=== PATIENT | male | born 1990 | race Caucasian/White ===

== ENCOUNTER 2020-06-22 22:19 | Emergency (ER) | payer OTHER ==
[~2020-06-22] VITALS: Ht 180.3 cm; Wt 110.6 kg
--- NOTE | 2020-06-22 22:32 | NUR ---
EKG DONE IN TRIAGE.
--- NOTE | 2020-06-22 23:33 | NUR ---
pt to room from lobby
--- NOTE | 2020-06-23 | NUR ---
CC OF SYNCOPE, FELL WHILE SMOKING CIGERETTE AT HOME, + FOR LOC FOR APPROX 20 SECONDS, GIRLFRIEND AT HOME, HEARD FALL THROUGH FALL. PT STATES AFTER SYNCOPAL EVENT HE FELT DIZZY. ORTHOS NEGATIVE. PT ON CARDIAC MONITORS RESTING IN [facility], GF AT BEDSIDE
[2020-06-23 00:15] LABS: BASOPHILS % (AUTO) 1 % (0-1); EOSINOPHILS % (AUTO) 2 % (1-7); LYMPHOCYTES % (AUTO) 21 % (22-44); MEAN CORPUSCULAR HEMOGLOBIN 29.4 pg (27.5-34.5); MEAN CORPUSCULAR HGB CONC 33.5 g/dL (33.2-36.2); MEAN PLATELET VOLUME 9.3 fL (7.4-10.4); MONOCYTES % (AUTO) 10 % (2-9); NEUTROPHILS % (AUTO) 67 % (42-75); PLATELET COUNT 169 x10^3/uL (130-400); RED CELL DISTRIBUTION WIDTH 13.6 % (9.4-14.8)
[2020-06-23 00:16] LABS: MD NO
[2020-06-23 00:22] LABS: ALBUMIN 3.9 g/dL (3.4-5.0); ANION GAP 3 mmol/L (5-15); CALCIUM 8.6 mg/dL (8.5-10.1); CHLORIDE 109 mmol/L (98-107); CREATININE 0.95 mg/dL (0.7-1.3)
[2020-06-23 00:29] LABS: TROPONIN I < 0.015 ng/mL (0.000-0.045)
--- NOTE | 2020-06-23 01:16 | NUR ---
PT RESTING COMFORTABLY. ON BILINGUAL INTERPRETER, GIRLFRIEND AT BEDSIDE
--- NOTE | 2020-06-23 02:30 | NUR ---
PT RESTING ON GURNEY, NO NEEDS AT THIS TIME. ON SOCIAL SERVICE AGENCY DIRECTOR
--- NOTE | 2020-06-23 03:30 | NUR ---
PT RESTING, NO NEEDS AT THIS TIME
[2020-06-23] MEDS ORDERED: ACETAMINOPHEN 325 MG TABLET PO PRN (04:30)
[2020-06-23] MEDS ORDERED: PROMETHAZINE 25 MG/ML, 1ML IM PRN (04:30)
--- NOTE | 2020-06-23 05:12 | NUR ---
PT DENIES DIZZYNESS WHEN AMBULATING TO RESTROOM
--- NOTE | 2020-06-23 05:12 | NUR ---
PT PLACED ON HOSPITAL BED, IV STARTED. PT AMBULATORY WITH STEADY GAIT TO RESTROOM
--- NOTE | 2020-06-23 06:00 | NUR ---
PT SLEEPING, NO NEEDS AT THIS TIME
--- NOTE | 2020-06-23 06:45 | NUR ---
BEDSIDE REPORT RECEIVED FROM CORINNE PEGUERO.
--- NOTE | 2020-06-23 07:00 | NUR ---
PT SITTING UPRIGHT ON HOSPITAL BED WITH EYES CLOSED. NAD, VSS. PT DENIES ANY NEEDS AT THIS TIME. CALL LIGHT AND PERSONAL BELONGINGS WITHIN REACH.
--- NOTE | 2020-06-23 08:03 | NUR ---
PT SITTING UPRIGHT ON HOSPITAL BED WITH EYES CLOSED. NAD, VSS. PT DENIES ANY NEEDS AT THIS TIME. CALL LIGHT AND PERSONAL BELONGINGS WITHIN REACH.
--- NOTE | 2020-06-23 09:02 | NUR ---
PT SITTING UPRIGHT ON HOSPITAL BED WITH EYES CLOSED. NAD, VSS. PT DENIES ANY NEEDS AT THIS TIME. CALL LIGHT AND PERSONAL BELONGINGS WITHIN REACH.
--- NOTE | 2020-06-23 10:03 | NUR ---
PT SITTING UPRIGHT ON HOSPITAL BED WITH EYES CLOSED. NAD, VSS. PT DENIES ANY NEEDS AT THIS TIME. CALL LIGHT AND PERSONAL BELONGINGS WITHIN REACH.
--- NOTE | 2020-06-23 10:30 | NUR ---
HOSPITALIST AT BEDSIDE
--- NOTE | 2020-06-23 11:15 | NUR ---
PT SITTING UPRIGHT ON HOSPITAL BED, NAD, VSS. AT BEDSIDE. SOCIAL WORK AT BEDSIDE TO DISCUSS QUESTIONS PT AND HAD. PT DENIES ANY ADDITIONAL NEEDS AT THIS TIME. CALL LIGHT AND PERSONAL BELONGINGS WITHIN REACH. CONTINUOUS PULSE OX AND BAGGER AND STOCK HANDLER HELPER IN PLACE.
--- NOTE | 2020-06-23 12:04 | NUR ---
PT SITTING UPRIGHT ON HOSPITAL BED, NAD, VSS. AT BEDSIDE. PT DENIES ANY ADDITIONAL NEEDS AT THIS TIME. CALL LIGHT AND PERSONAL BELONGINGS WITHIN REACH. CONTINUOUS PULSE OX AND MESSENGER FLOORPERSON IN PLACE.
--- NOTE | 2020-06-23 14:00 | NUR ---
PT SITTING UPRIGHT ON HOSPITAL BED, NAD, VSS. AT BEDSIDE. PT DENIES ANY ADDITIONAL NEEDS AT THIS TIME. CALL LIGHT AND PERSONAL BELONGINGS WITHIN REACH. CONTINUOUS PULSE OX AND POWER PLANT OPERATOR APPRENTICE IN PLACE.
--- NOTE | 2020-06-23 14:38 | NUR ---
US AT BEDSIDE
[2020-06-23 15:11] VITALS: BP 111/64
--- NOTE | 2020-06-23 15:15 | NUR ---
PT OK TO D/C PER DR. HITCHCOCK. NURSE FROM [facility] AT BEDSIDE REVIEWING D/C INSTRUCTIONS WITH PT AND .
--- NOTE | 2020-06-23 15:29 | NUR ---
Patient given discharge instructions by [facility]u lane rn and they have confirmed that they understand the instructions. Patient ambulatory with steady gait.
== END 2020-06-23 15:31 | disposition home or self-care (01) ==
LOC: ED 06-23 00:11 → UNDOADMOB 06-23 01:52 → INTOOBSV 06-23 01:52 → EDIP 06-23 01:52 → ED 06-23 15:31
DX: R55 Syncope and collapse (principal); R00.1 Bradycardia, unspecified; R07.89 Other chest pain; R42 Dizziness and giddiness; R11.0 Nausea; F17.210 Nicotine dependence, cigarettes, uncomplicated
CPT/HCPCS: 36415; 71045; 80048; 82040; 83735; 83880; 84443; 84484; 85025; 93005; 93306; 99285; 99406

== ENCOUNTER 2020-08-01 20:32 | Emergency (ER) | payer OTHER ==
[~2020-08-01] VITALS: Ht 180.3 cm; Wt 111.0 kg
[2020-08-01 21:04] LABS: BASOPHILS % (AUTO) 0 % (0-1); EOSINOPHILS % (AUTO) 1 % (1-7); LYMPHOCYTES % (AUTO) 26 % (22-44); MEAN CORPUSCULAR HEMOGLOBIN 29.9 pg (27.5-34.5); MEAN PLATELET VOLUME 8.4 fL (7.4-10.4); MONOCYTES % (AUTO) 8 % (2-9); NEUTROPHILS % (AUTO) 65 % (42-75); PLATELET COUNT 184 x10^3/uL (130-400); RED BLOOD COUNT 5.52 x10^6/uL (4.38-5.82); RED CELL DISTRIBUTION WIDTH 13.6 % (9.4-14.8)
[2020-08-01 21:07] LABS: MD NO
[2020-08-01 21:15] LABS: ALBUMIN 4.6 g/dL (3.4-5.0); ANION GAP 5 mmol/L (5-15); CALCIUM 9.3 mg/dL (8.5-10.1); CHLORIDE 110 mmol/L (98-107); CREATININE 0.94 mg/dL (0.7-1.3)
[2020-08-01 21:19] LABS: TROPONIN I < 0.015 ng/mL (0.000-0.045)
[2020-08-01 23:11] VITALS: BP 119/69
== END 2020-08-01 23:14 | disposition home or self-care (01) ==
LOC: ED 22:53
DX: R07.89 Other chest pain (principal); R06.02 Shortness of breath; R55 Syncope and collapse; R94.31 Abnormal electrocardiogram [ECG] [EKG]; F17.200 Nicotine dependence, unspecified, uncomplicated
CPT/HCPCS: 36415; 71046; 80048; 82040; 84484; 85025; 93005; 99284; 99285

== ENCOUNTER 2020-12-14 10:35 | Emergency (ER) | payer OTHER ==
[~2020-12-14] VITALS: Ht 180.3 cm; Wt 115.9 kg
--- NOTE | 2020-12-14 10:50 | NUR ---
Pt arrrived with complaints of CP that have been intermittent since 6am. Pt visited health center at work and they advised pt to come to ER. Pt states that he has no prior cardiac hx and that it is currently a dull feeling, EKG done in triage, pt connected to all monitors, able to dress self independently, NADN, VSS, WCTM.
--- NOTE | 2020-12-14 11:02 | NUR ---
PROVIDER AT BEDSIDE TO DISCUSS POC
--- NOTE | 2020-12-14 12:02 | NUR ---
Pt resting in bed with XRAY at bedside
[2020-12-14 12:10] LABS: BASOPHILS % (AUTO) 1 % (0-1); EOSINOPHILS % (AUTO) 1 % (1-7); LYMPHOCYTES % (AUTO) 25 % (22-44); MEAN CORPUSCULAR HGB CONC 33.7 g/dL (33.2-36.2); MEAN PLATELET VOLUME 8.8 fL (7.4-10.4); MONOCYTES % (AUTO) 8 % (2-9); NEUTROPHILS % (AUTO) 66 % (42-75); PLATELET COUNT 166 x10^3/uL (130-400); RED BLOOD COUNT 5.15 x10^6/uL (4.38-5.82)
[2020-12-14 12:11] LABS: MD NO
[2020-12-14 12:23] LABS: ALANINE AMINOTRANSFERASE 20 U/L (12-78); ALBUMIN 3.7 g/dL (3.4-5.0); ANION GAP 3 mmol/L (5-15); CALCIUM 8.6 mg/dL (8.5-10.1); CHLORIDE 109 mmol/L (98-107); CREATININE 0.89 mg/dL (0.7-1.3)
[2020-12-14 12:28] LABS: ALKALINE PHOSPHATASE 64 U/L (45-117); BILIRUBIN,TOTAL 0.3 mg/dL (0.2-1.0); TOTAL PROTEIN 6.6 g/dL (6.4-8.2); TROPONIN I < 0.015 ng/mL (0.000-0.045)
[2020-12-14 13:06] VITALS: BP 114/65
== END 2020-12-14 13:08 | disposition home or self-care (01) ==
LOC: ED 11:06
DX: R07.89 Other chest pain (principal); R00.2 Palpitations; R55 Syncope and collapse; Z87.891 Personal history of nicotine dependence
CPT/HCPCS: 36415; 71045; 80053; 84484; 85025; 93005; 99285

== ENCOUNTER → 2021-02-03 | Outpatient (CLI) | payer OTHER ==
[~2021-02-03] MED LIST: REGADENOSON 0.4 MG/5 ML SYRINGE ONE
== END | disposition home or self-care (01) ==
LOC: CFH 07:44
PROVIDERS: ATTEND Registered Nurse
DX: R07.9 Chest pain, unspecified (principal)
CPT/HCPCS: 78452; 93017; A9502; J2785